=== PATIENT | female | born 2000 | race Caucasian/White ===

== ENCOUNTER 2022-06-25 00:10 | Inpatient (IN) | payer OTHER, SELFPAY ==
[2022-06-25 00:37] VITALS: BMI 30.7
[2022-06-25 02:45] VITALS: BP 105/66; PULSE 104; RESP 18; TEMP 36.6; O2SAT 96
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
[2022-06-25] MEDS: Magnesium Hydrox/Alum Hydrox 30 ML ORAL.SUSP PO (06:15)
[2022-06-25 09:30] VITALS: BP 115/56; PULSE 58; RESP 16; TEMP 36.6; O2SAT 98
--- NOTE | 2022-06-25 11:24 | P.CONHOSP_ITS ---
History of Present Illness Data of Consult Service Date: 06/25/22 Primary Care Provider: Unknown Physician HPI Reason for consult: Routine medical problem This is a 22 yo F who is admitted to the inpatient psychiatric unit. Medical consult requested for routine medical H&P. The patient was initially on the telephone (shared phone in the hallway) when I first met her. Upon introducing myself, the patient immediately became emotional and grasped her stomach. She reoprts that she has had abdominal pain -- mid abdomen, for the last 3 years. She is unable to qualify the nature of this pain. She states initially that she has not seen a pattern to the pain. She subsequently reports it worsens with oral intake. She denies any hematemesis or melena. She denies taking ibupforen or excessive alcohol. She reports multiple CT scans at [facility] and endorses that she has endoscopic evaluations previously She feels frustrated because she has not been given a diagnosis. PMH Abdominal pain PSH Endoscopies Vapes nicotine; no marijuana for 3 weeks; denies etoh denies medical issues, reports mental health issues Review of Systems Review of Systems: negative except HPI PMFSH Social History Household Members: Significant Other Housing: Apartment Do you presently have visiting nurse or other home services: No Patient Tobacco Use Status: Never used Tobacco Smoked in Last 30 Days: No e-Cigarette/Vaping Use: Currently Using Frequency of e-Cigarette/Vaping Use: 50mg nicotine/1 pod daily Patient Interested in Nicotine Replacement: Yes Patient Given Instructions on How to Stop Smoking: Yes Date Education Initiated: 06/25/22 Second Hand Smoke Exposure: No Use of substances other than those prescribed or required for medical reasons: Yes Substance Use Type: Marijuana Substance Use Frequency: Daily Last Used Substance: Weeks (ago) Currently Displaying Signs/Symptoms of Drug Intoxication Withdrawal: No Any prior treatment program specific to substance use: No Have you been hit, kicked, punched, or otherwise hurt by someone within the past year? If so, by whom?: No Do you feel safe in your current relationship?: Yes Is there a partner from a previous relationship who is making you feel unsafe now?: No Are you made to feel afraid or neglected: No Advance Directives: No Do you have thoughts of harming others: None Do you have a plan to hurt others: No Plan Recently lost weight without trying: Unsure How much weight loss: Unsure Eating poorly because of decreased appetite: Yes Nutrition screen score: 5 Nutrition Risks: Acute nausea or vomiting x1 week and Binging/Purging Patient : No : No Poor oral hygiene: No service: No Sexual orientation: Straight/Heterosexual Meds Allergies Allergy/AdvReac Type Severity Reaction Status Date / Time morphine AdvReac Agitated Verified 06/25/22 00:37 Active Medications: Current Medications Acetaminophen (Acetaminophen 325 Mg Tablet) 650 mg PO Q6H PRN PRN Reason: Headache/Pain Mild Scale (1-3) Al Hydroxide/Mg Hydroxide (Magnesium Hydrox/Alum Hydrox 30 Ml Oral.Susp) 30 ml PO Q6H PRN PRN Reason: Heartburn/Nausea Last Admin: 06/25/22 06:15 Dose: 30 ml Hydroxyzine HCl (Hydroxyzine Hcl 25 Mg Tablet) 25 mg PO Q6H PRN PRN Reason: Anxiety Magnesium Hydroxide (Milk Of Magnesia 30 Ml Oral.Susp) 30 ml PO DAILY PRN PRN Reason: Constipation Trazodone HCl (Trazodone Hcl 50 Mg Tablet) 50 mg PO BEDTIME PRN PRN Reason: Insomnia Home Medications Medication Instructions Recorded Confirmed Last Taken Type clonidine HCl 0.1 mg tablet 0.1 mg PO TID 06/25/22 06/25/22 Unknown History famotidine 10 mg tablet 10 mg BID 06/25/22 06/25/22 Unknown History lithium carbonate 150 mg capsule 150 mg PO BID 06/25/22 06/25/22 Unknown History propranolol 10 mg tablet 10 mg PO DAILY 06/25/22 06/25/22 Unknown History Physical Exam Vital Signs and Narrative: Vital Signs: Last Vital Signs Temp 97.9 F 06/25/22 02:45 Pulse 104 06/25/22 02:45 Resp 18 06/25/22 02:45 BP 105/66 06/25/22 02:45 Pulse Ox 96 06/25/22 02:45 O2 Del Method 06/25/22 02:45 BMI result Body Mass Index 30.7 Const: Other: General - emotional, crying; clasping stomach Cardiovascular - regular rate and rhythm, S1-S2 Lungs - normal respiratory effort, clear to auscultation bilaterally, no wheezing Abdomen - soft and non-distened; normal bowel sounds; benign exam Extremities - no edema bilaterally Neuro - awake and alert, no focal deficits Assessment and Plan (1) Abdominal pain: Status: Acute Plan 22 yo F admitted to inpatient psych unit. Medical consult requested for routine medical H&P. 1. Adominal pain acute on chronic per patients reported history. Reprots significant work up with [facility] without an acute diagnosis. Her exam is currently benign and per documentation from [facility] -- she had a normal CT scan (no formal CT report seen on her physical chart). Can continue pepcid that she is chronically on and add prilosec 20mg daily. If her pain is prohibitive to her mental health treatment -- would recommend GI evaluation, although it appears that she has been worked up in the past. Try to avoid narcotic analgesics if at all possible. The above has been d/w her primary psychiatrist Dr. Moser. Will sign off, please re-consult if any issues / questions.
[2022-06-25] MEDS: LORazepam 1 MG TABLET 2 MG PO (12:03)
[2022-06-25] MEDS: Famotidine 20 MG TABLET PO (16:00)
[2022-06-25] MEDS: Ondansetron ODT 4 MG TAB.RAPDIS TRANSLINGU (16:24)
[2022-06-25] MEDS: Omeprazole 20 MG CAPSULE.DR PO (17:25)
[2022-06-25] MEDS: LORazepam 1 MG TABLET PO (17:28)
[2022-06-25 18:00] VITALS: PULSE 83; RESP 16; TEMP 36.6; O2SAT 97
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
[2022-06-25] MEDS: Famotidine 20 MG TABLET 10 MG PO (20:41)
[2022-06-25] MEDS: clonazePAM 1 MG TABLET PO (20:42)
[2022-06-26] MEDS: QUEtiapine Fumarate 50 MG TABLET PO ×3 (00:11→23:14)
[2022-06-26 06:00] VITALS: BP 114/56; PULSE 100; RESP 16; TEMP 36.6; O2SAT 97
[2022-06-26] MEDS: Omeprazole 20 MG CAPSULE.DR PO (09:13)
[2022-06-26] MEDS: clonazePAM 1 MG TABLET PO ×2 (09:15→23:14)
[2022-06-26] MEDS: Propranolol HCL 10 MG TABLET PO (09:15)
[2022-06-26] MEDS: Famotidine 20 MG TABLET 10 MG PO ×2 (09:16→21:26)
[2022-06-26 09:17] LABS: Alanine Aminotransferase 14 U/L (0-31); Albumin Level 4.8 g/dL (3.5-5.0); Alkaline Phosphatase 46 U/L (39-117); Anion Gap 18 (12-20); Aspartate Amino Transferase 16 U/L (5-31); Bilirubin Total 0.7 mg/dL (0.0-1.0); Blood Urea Nitrogen 14 mg/dL (9-16); Calcium 9.7 mg/dL (8.4-10.2); Carbon Dioxide 26 mmol/L (22-29); Chloride 99 mmol/L (96-108); Cholesterol 135 mg/dL; Creatinine Clr Calc Pharmacy 104.4; Estimated Glomerular Filt Rate > 60; Glucose Fasting 97 mg/dL (60-99); HDL Cholesterol 40 mg/dL; LDL Cholesterol Calculated 77 mg/dl; Potassium 3.2 mmol/L (3.3-5.1); Sodium 140 mmol/L (135-145); Triglycerides 90 mg/dL
--- NOTE | 2022-06-26 09:17 | P.PNPSI_ITS ---
Subjective Subjective Date of Service: 06/26/22 Reason For Visit: Major Depressive Disorder Subjective Notes: Conditional Voluntary Healthcare Proxy: No Guardianship: No Medical Problems Affecting Mental Status: No Interim History: Patient was seen and discussed in rounds today. Records and plans were reviewed. She continues to be somewhat anxious with no SI. She talked to me about wanting to be able to use her pencil erasers for drawing which she is able to do so during art group but may have access to crayons at other times. She is also requesting p.r.n. Seroquel which has not been put in for her and I put in 25 mg b.i.d. p.r.n.. Eating and sleeping adequately. No other changes were implemented today Review of Systems Review of Systems Yes all other systems are reviewed and are negative Mental Status Exam Mental Status Exam Narrative: In today's visit she is alert, oriented and pleasant. Normal speech. Good eye contact. Affect is appropriate and varied. She denies any SI. No signs of psychosis. Cognitively intact. Judgment is intact Diagnostics Vital Signs (24Hr): Vital Signs - 24 hr 06/25/22 09:30 06/25/22 18:00 06/26/22 06:00 Temperature 97.9 F 97.9 F 97.9 F Pulse Rate 58 83 100 Respiratory Rate 16 16 16 Blood Pressure 115/56 114/56 L Pulse Oximetry 98 97 97 Oxygen Delivery Method Room Air Room Air Room Air BMI result Body Mass Index 30.7 Labs Results: 06/26/22 08:19 Labs: Laboratory Results - last 48 hr 06/26/22 08:19 Sodium 140 Potassium 3.2 L Chloride 99 Carbon Dioxide 26 Anion Gap 18 BUN 14 Creatinine 0.72 Estim Creat Clear Calc 104.4 Estimated GFR > 60 Fasting Glucose 97 Calcium 9.7 Total Bilirubin 0.7 AST 16 ALT 14 Alkaline Phosphatase 46 Total Protein 7.0 Albumin 4.8 Triglycerides 90 Cholesterol 135 LDL Cholesterol, Calc 77 HDL Cholesterol 40 Medications Medications Current Medications Acetaminophen (Acetaminophen 325 Mg Tablet) 650 mg PO Q6H PRN PRN Reason: Headache/Pain Mild Scale (1-3) Al Hydroxide/Mg Hydroxide (Magnesium Hydrox/Alum Hydrox 30 Ml Oral.Susp) 30 ml PO Q6H PRN PRN Reason: Heartburn/Nausea Last Admin: 06/25/22 06:15 Dose: 30 ml Clonazepam (Clonazepam 1 Mg Tablet) 1 mg PO BID [facility] Last Admin: 06/26/22 09:15 Dose: 1 mg Famotidine (Famotidine 20 Mg Tablet) 10 mg PO BID [facility] Last Admin: 06/26/22 09:16 Dose: 10 mg Hydroxyzine HCl (Hydroxyzine Hcl 25 Mg Tablet) 25 mg PO Q6H PRN PRN Reason: Anxiety Magnesium Hydroxide (Milk Of Magnesia 30 Ml Oral.Susp) 30 ml PO DAILY PRN PRN Reason: Constipation Omeprazole (Omeprazole 20 Mg Capsule.Dr) 20 mg PO DAILY@0630 [facility] Last Admin: 06/26/22 09:13 Dose: 20 mg Ondansetron HCl (Ondansetron Odt 4 Mg Tab.Rapdis) 4 mg TRANSLINGU Q8H PRN PRN Reason: Nausea and Vomiting Last Admin: 06/25/22 16:24 Dose: 4 mg Propranolol HCl (Propranolol Hcl 10 Mg Tablet) 10 mg PO DAILY [facility]; Protocol Last Admin: 06/26/22 09:15 Dose: 10 mg Quetiapine Fumarate (Quetiapine Fumarate 50 Mg Tablet) 50 mg PO BEDTIME [facility] Last Admin: 06/26/22 04:05 Dose: 50 mg Trazodone HCl (Trazodone Hcl 50 Mg Tablet) 50 mg PO BEDTIME PRN PRN Reason: Insomnia Allergies Allergies Allergy/AdvReac Type Severity Reaction Status Date / Time morphine AdvReac Agitated Verified 06/25/22 00:37 Assessment & Plan Assessment & Plan (1) PTSD (post-traumatic stress disorder): Status: Acute Code(s): F43.10 - Post-traumatic stress disorder, unspecified (2) Borderline personality disorder: Status: Acute Code(s): F60.3 - Borderline personality disorder (3) Eating disorder, unspecified: Status: Acute Code(s): F50.9 - Eating disorder, unspecified (4) Cyclical vomiting, psychogenic: Status: Acute Code(s): F50.89 - Other specified eating disorder Plan DC seroquel, clonidine, and lithium. start klonopin 1 mg PO BID to see if anxiety can be brought under control and vomiting stopped. start omeprazole per medicine. continue famotidine, propranolol. 06/26: Continue current regimen and plans. At Seroquel 25 mg b.i.d. p.r.n. for anxiety. She has been on this before and has found it helpful I spent minutes with the patient and/or on the patient floor today, greater than?50% of which was spent counseling/coordinating care. Patient educated on: medication risk/benefits Reason for contiued inpatient stay Substantial Risk for: med/psych decompensation
[2022-06-26] MEDS: QUEtiapine Fumarate 25 MG TABLET PO (10:02)
[2022-06-26] MEDS: hydrOXYzine HCL 25 MG TABLET PO ×2 (12:56→23:14)
[2022-06-26] MEDS: Loperamide HCl 2 MG CAPSULE 4 MG PO (13:28)
--- NOTE | 2022-06-26 15:23 | PC.NURSE ---
At 1511, pt was visible in her bathroom crying on the floor. When asked what was wrong, pt said I can't see anything, my eyes are blurry. RN assisted patient back to her bed and assessed vitals. BP 130/79, HR 86, Temp 97.6, O2 99%. When asked if she's experienced this before she said yeah when I was in the emergency room but then it went away, now it came back. They said I needed glasses but they never gave me any. MD aware, no additional interventions at this time.
--- NOTE | 2022-06-26 16:15 | PC.NURSE ---
Pt vomited approximately 200mL yellow bile at least two times throughout the shift, aware
[2022-06-26 20:25] VITALS: BP 128/77; PULSE 61; RESP 16; TEMP 36.6; O2SAT 98
--- NOTE | 2022-06-27 01:04 | PC.NURSE ---
Pt A&O, initially c/o abdominal pain, sts showers and carbonated soda help. Impatient with assessments, denied SI/HI/AH/VH, declined further assessment. Accepted Pepcid during normal med pass but wanted to wait for other medication and said she would ask for them when she wanted them. After taking Pepcid, drinking gingerale, and taking a shower, pt stated ?I feel better,? appeared brighter, used humor. Then @2310 she stated the GI pain returned when she drank some water; she sat on the floor in front of the nurse station then returned to her room where she took remainder of scheduled meds @2315. Pt?s mood initially appeared depressed and anxious, improved mood after shower, then depressed again though cooperative. Gave heat pack for abdominal pain. Slept afterward.
[2022-06-27] MEDS: QUEtiapine Fumarate 25 MG TABLET PO (05:49)
[2022-06-27] MEDS: Omeprazole 20 MG CAPSULE.DR PO (05:49)
[2022-06-27 06:00] VITALS: BP 151/104; PULSE 84; RESP 18; TEMP 36.3; O2SAT 99
[2022-06-27] MEDS: hydrOXYzine HCL 25 MG TABLET PO ×3 (06:26→20:45)
[2022-06-27] MEDS: Famotidine 20 MG TABLET 10 MG PO ×2 (09:23→20:46)
[2022-06-27] MEDS: clonazePAM 1 MG TABLET PO ×2 (09:23→20:45)
[2022-06-27] MEDS: Propranolol HCL 10 MG TABLET PO (09:26)
--- NOTE | 2022-06-27 09:55 | P.PNPSI_ITS ---
Subjective Subjective Date of Service: 06/27/22 Reason For Visit: Major Depressive Disorder Subjective Notes: Conditional Voluntary Healthcare Proxy: No Guardianship: No Medical Problems Affecting Mental Status: No Interim History: Patient was seen and discussed in rounds today. Records and plans were reviewed. She states that she is still having a lot of anxiety and these Seroquel 25 mg p.r.n. has not been effective at all. I will increase it to 50 mg t.i.d. p.r.n.. She also has been having episodes of abdominal pain and discomfort. Eating and sleeping adequately. No other complaints. She has had some crying spells. Her affect has been up and down. No other changes were implemented. Review of Systems Review of Systems Anxiety, abdominal discomfort and pain Yes all other systems are reviewed and are negative Diagnostics Vital Signs (24Hr): Vital Signs - 24 hr 06/26/22 20:25 06/27/22 06:00 Temperature 97.9 F 97.4 F Pulse Rate 61 84 Respiratory Rate 16 18 Blood Pressure 128/77 151/104 H Pulse Oximetry 98 99 Oxygen Delivery Method Room Air Room Air BMI result Body Mass Index 30.7 Labs Results: 06/26/22 08:19 Labs: Laboratory Results - last 48 hr 06/26/22 08:19 Sodium 140 Potassium 3.2 L Chloride 99 Carbon Dioxide 26 Anion Gap 18 BUN 14 Creatinine 0.72 Estim Creat Clear Calc 104.4 Estimated GFR > 60 Fasting Glucose 97 Calcium 9.7 Total Bilirubin 0.7 AST 16 ALT 14 Alkaline Phosphatase 46 Total Protein 7.0 Albumin 4.8 Triglycerides 90 Cholesterol 135 LDL Cholesterol, Calc 77 HDL Cholesterol 40 Medications Medications Current Medications Acetaminophen (Acetaminophen 325 Mg Tablet) 650 mg PO Q6H PRN PRN Reason: Headache/Pain Mild Scale (1-3) Al Hydroxide/Mg Hydroxide (Magnesium Hydrox/Alum Hydrox 30 Ml Oral.Susp) 30 ml PO Q6H PRN PRN Reason: Heartburn/Nausea Last Admin: 06/25/22 06:15 Dose: 30 ml Clonazepam (Clonazepam 1 Mg Tablet) 1 mg PO BID [facility] Last Admin: 06/27/22 09:23 Dose: 1 mg Famotidine (Famotidine 20 Mg Tablet) 10 mg PO BID [facility] Last Admin: 06/27/22 09:23 Dose: 10 mg Hydroxyzine HCl (Hydroxyzine Hcl 25 Mg Tablet) 25 mg PO Q6H PRN PRN Reason: Anxiety Last Admin: 06/27/22 06:26 Dose: 25 mg Magnesium Hydroxide (Milk Of Magnesia 30 Ml Oral.Susp) 30 ml PO DAILY PRN PRN Reason: Constipation Omeprazole (Omeprazole 20 Mg Capsule.Dr) 20 mg PO DAILY@0630 [facility] Last Admin: 06/27/22 05:49 Dose: 20 mg Ondansetron HCl (Ondansetron Odt 4 Mg Tab.Rapdis) 4 mg TRANSLINGU Q8H PRN PRN Reason: Nausea and Vomiting Last Admin: 06/25/22 16:24 Dose: 4 mg Propranolol HCl (Propranolol Hcl 10 Mg Tablet) 10 mg PO DAILY [facility]; Protocol Last Admin: 06/27/22 09:26 Dose: 10 mg Quetiapine Fumarate (Quetiapine Fumarate 50 Mg Tablet) 50 mg PO BEDTIME [facility] Last Admin: 06/26/22 23:14 Dose: 50 mg Quetiapine Fumarate (Quetiapine Fumarate 25 Mg Tablet) 25 mg PO BID PRN PRN Reason: Anxiety Last Admin: 06/27/22 05:49 Dose: 25 mg Trazodone HCl (Trazodone Hcl 50 Mg Tablet) 50 mg PO BEDTIME PRN PRN Reason: Insomnia Allergies Allergies Allergy/AdvReac Type Severity Reaction Status Date / Time morphine AdvReac Agitated Verified 06/25/22 00:37 Assessment & Plan Assessment & Plan (1) PTSD (post-traumatic stress disorder): Status: Acute Code(s): F43.10 - Post-traumatic stress disorder, unspecified (2) Borderline personality disorder: Status: Acute Code(s): F60.3 - Borderline personality disorder (3) Eating disorder, unspecified: Status: Acute Code(s): F50.9 - Eating disorder, unspecified (4) Cyclical vomiting, psychogenic: Status: Acute Code(s): F50.89 - Other specified eating disorder Plan DC seroquel, clonidine, and lithium. start klonopin 1 mg PO BID to see if anxiety can be brought under control and vomiting stopped. start omeprazole per medicine. continue famotidine, propranolol. 06/26: Continue current regimen and plans. At Seroquel 25 mg b.i.d. p.r.n. for anxiety. She has been on this before and has found it helpful Continue current regimen and plans. Increase Seroquel to 50 mg t.i.d. p.r.n. I spent minutes with the patient and/or on the patient floor today, greater than?50% of which was spent counseling/coordinating care. Patient educated on: medication risk/benefits Reason for contiued inpatient stay Substantial Risk for: med/psych decompensation
[2022-06-27] MEDS: QUEtiapine Fumarate 50 MG TABLET PO ×3 (10:45→20:45)
[2022-06-27] MEDS: Ondansetron ODT 4 MG TAB.RAPDIS TRANSLINGU (10:45)
[2022-06-27 20:38] VITALS: BP 149/94; PULSE 90; RESP 18; TEMP 36.2; O2SAT 100
--- NOTE | 2022-06-27 22:58 | PC.NURSE ---
Discussed with pt health risks associated with frequent vomiting including dehydration, damage to the esophagus, risk of esophageal cancer, and dental erosion from acidic stomach contents. Pt responded, I'm well aware. I just don't know what to do about it, then stated, Now that you mention it, I'm going to brush my teeth. Pt then asked for her art supplies and was allowed supervised use in the day room.
[2022-06-28] MEDS: QUEtiapine Fumarate 50 MG TABLET PO ×2 (03:59→12:40)
[2022-06-28 06:00] VITALS: BP 112/57; PULSE 88; RESP 16; TEMP 36.2; O2SAT 99
[2022-06-28] MEDS: Omeprazole 20 MG CAPSULE.DR PO (08:01)
[2022-06-28] MEDS: Propranolol HCL 10 MG TABLET PO (08:01)
[2022-06-28] MEDS: clonazePAM 1 MG TABLET PO ×3 (08:01→21:16)
[2022-06-28] MEDS: Famotidine 20 MG TABLET 10 MG PO ×2 (08:02→21:15)
[2022-06-28] MEDS: hydrOXYzine HCL 25 MG TABLET PO ×2 (12:40→23:57)
--- NOTE | 2022-06-28 12:53 | HO.PSYCHPN ---
Subjective Subjective Date of Service: 06/28/22 Reason For Visit: Major Depressive Disorder Interim History: pt expresses upset at having discharge planned for tomorrow. states her anxiety is worse than it's ever been and she is genuinely afraid of going home. she says she is having constant anxiety attacks [place] and likely jump to her if she returns home in this state. she states, when i'm sick, i'm suicidal. she feels quite ill presently. agreeable to increase klonopin to 1 TID, increase seroquel at HS to 150 mg. per staff, nausea. c/o stomach pain and anxiety. denies SI/HI/AVH to staff. eves watching TV. vomited into bucket in group room; agreed to go to her room if she needed to vomit moving forward. attending to ADLs. ate dinner. asking for Tx plan for when she needs to vomit. Mental Status Exam Mental Status Exam Narrative: somewhat flustered and agitated, cooperative. no PMA/PMR. speech nml loudness; incr amount, rate; decr latency. nml tone. thoughts linear and logical without delusions or paranoia. affect constricted, hyper-intense, min-labile. mood anxious. endorsed SI when i'm sick, no HI/AVH reported. Diagnostics Vital Signs (24Hr): Vital Signs - 24 hr 06/27/22 20:38 06/28/22 06:00 Temperature 97.2 F 97.1 F Pulse Rate 90 88 Respiratory Rate 18 16 Blood Pressure 149/94 H 112/57 L Pulse Oximetry 100 99 Oxygen Delivery Method Room Air Room Air BMI result Body Mass Index 30.7 Labs Results: 06/26/22 08:19 Medications Medications Current Medications Acetaminophen (Acetaminophen 325 Mg Tablet) 650 mg PO Q6H PRN PRN Reason: Headache/Pain Mild Scale (1-3) Al Hydroxide/Mg Hydroxide (Magnesium Hydrox/Alum Hydrox 30 Ml Oral.Susp) 30 ml PO Q6H PRN PRN Reason: Heartburn/Nausea Last Admin: 06/25/22 06:15 Dose: 30 ml Clonazepam (Clonazepam 1 Mg Tablet) 1 mg PO TID KATERINA Famotidine (Famotidine 20 Mg Tablet) 10 mg PO BID [facility]ATER[facility] Last Admin: 06/28/22 08:02 Dose: 10 mg Hydroxyzine HCl (Hydroxyzine Hcl 25 Mg Tablet) 25 mg PO Q6H PRN PRN Reason: Anxiety Last Admin: 06/28/22 12:40 Dose: 25 mg Magnesium Hydroxide (Milk Of Magnesia 30 Ml Oral.Susp) 30 ml PO DAILY PRN PRN Reason: Constipation Omeprazole (Omeprazole 20 Mg Capsule.Dr) 20 mg PO DAILY@0630 [facility] Last Admin: 06/28/22 08:01 Dose: 20 mg Ondansetron HCl (Ondansetron Odt 4 Mg Tab.Rapdis) 4 mg TRANSLINGU Q8H PRN PRN Reason: Nausea and Vomiting Last Admin: 06/27/22 10:45 Dose: 4 mg Propranolol HCl (Propranolol Hcl 10 Mg Tablet) 10 mg PO DAILY [facility]; Protocol Last Admin: 06/28/22 08:01 Dose: 10 mg Quetiapine Fumarate (Quetiapine Fumarate 50 Mg Tablet) 50 mg PO TID PRN PRN Reason: Anxiety Last Admin: 06/28/22 12:40 Dose: 50 mg Quetiapine Fumarate (Quetiapine Fumarate 50 Mg Tablet) 150 mg PO BEDTIME [facility] Quetiapine Fumarate (Quetiapine Fumarate 50 Mg Tablet) 50 mg PO BEDTIME PRN PRN Reason: insomnia Allergies Allergies Allergy/AdvReac Type Severity Reaction Status Date / Time morphine AdvReac Agitated Verified 06/25/22 00:37 Assessment & Plan Assessment & Plan (1) PTSD (post-traumatic stress disorder): Status: Acute Code(s): F43.10 - Post-traumatic stress disorder, unspecified (2) Borderline personality disorder: Status: Acute Code(s): F60.3 - Borderline personality disorder (3) Eating disorder, unspecified: Status: Acute Code(s): F50.9 - Eating disorder, unspecified (4) Cyclical vomiting, psychogenic: Status: Acute Code(s): F50.89 - Other specified eating disorder Plan DC seroquel, clonidine, and lithium. start klonopin 1 mg PO BID to see if anxiety can be brought under control and vomiting stopped. start omeprazole per medicine. continue famotidine, propranolol. 06/26: Continue current regimen and plans. At Seroquel 25 mg b.i.d. p.r.n. for anxiety. She has been on this before and has found it helpful 06/27: Continue current regimen and plans. Increase Seroquel to 50 mg t.i.d. p.r.n. 06/28: increase klonopin to 1 mg TID, increase HS seroquel to 150 mg. continue prior plan otherwise. no clear change in anxiety or GI Sx since admission. I spent ___25___ minutes with the patient and/or on the patient floor today, greater than?50% of which was spent counseling/coordinating care. Patient educated on: medication risk/benefits Reason for contiued inpatient stay Substantial Risk for: harm to self, inability to function and rapid decompensation
[2022-06-28 21:05] VITALS: BP 116/63; PULSE 93; RESP 16; TEMP 36.6; O2SAT 96
[2022-06-28] MEDS: Nicotine Polacrilex 2 MG GUM 4 MG BUCCAL ×2 (21:32→23:59)
--- NOTE | 2022-06-28 21:56 | PC.NURSE ---
Late entry note for 1600 Patient observed vomiting in her room. Vomit was appeard to be yellow/bile. Patient reported that she is feeling anxious about discharge and attributed the vomiting d/t nerves about being discharged tomorrow.
[2022-06-28] MEDS: QUEtiapine Fumarate 50 MG TABLET 150 MG PO (23:51)
[2022-06-29] MEDS: Omeprazole 20 MG CAPSULE.DR PO (09:34)
[2022-06-29] MEDS: Famotidine 20 MG TABLET 10 MG PO ×2 (09:34→20:19)
[2022-06-29 09:35] VITALS: BP 112/67; PULSE 112; RESP 16; TEMP 36.6; O2SAT 98
[2022-06-29] MEDS: Propranolol HCL 10 MG TABLET PO (09:36)
[2022-06-29] MEDS: clonazePAM 1 MG TABLET PO ×3 (09:36→20:19)
[2022-06-29] MEDS: Nicotine 21 MG PATCH.TD24 TRANSDERMA (11:39)
--- NOTE | 2022-06-29 14:44 | P.PNPSI_ITS ---
Subjective Subjective Date of Service: 06/29/22 Reason For Visit: Major Depressive Disorder Interim History: reported poor sleep. agreeable to adding back clonidine 0.1 mg at HS. states h er anxiety is a bit better with medications change yesterday. per staff, eating OK, did not vomit yesterday. c/o insomnia 2/2 cold room. c/o increased anxiety and Racing mind. appeared to sleep until 0200, then went and slept in sensory room. no vomiting yesterday. Mental Status Exam Mental Status Exam Narrative: less flustered and agitated, cooperative. no PMA/PMR. speech nml loudness, a mount, rate; decr latency. nml tone. thoughts linear and logical without delusions or paranoia. affect constricted, hyper-intense, min-labile. mood anxious. no SI/HI/AVH reported. Diagnostics Vital Signs (24Hr): Vital Signs - 24 hr 06/28/22 21:05 06/29/22 09:35 Temperature 97.8 F 97.9 F Pulse Rate 93 112 H Respiratory Rate 16 16 Blood Pressure 116/63 112/67 Pulse Oximetry 96 98 Oxygen Delivery Method Room Air Room Air BMI result Body Mass Index 30.7 Labs Results: 06/26/22 08:19 Medications Medications Current Medications Acetaminophen (Acetaminophen 325 Mg Tablet) 650 mg PO Q6H PRN PRN Reason: Headache/Pain Mild Scale (1-3) Al Hydroxide/Mg Hydroxide (Magnesium Hydrox/Alum Hydrox 30 Ml Oral.Susp) 30 ml PO Q6H PRN PRN Reason: Heartburn/Nausea Last Admin: 06/25/22 06:15 Dose: 30 ml Clonazepam (Clonazepam 1 Mg Tablet) 1 mg PO TID [facility] Last Admin: 06/29/22 14:25 Dose: 1 mg Clonidine HCl (Clonidine Hcl 0.1 Mg Tablet) 0.1 mg PO BEDTIME [facility]; Protocol Famotidine (Famotidine 20 Mg Tablet) 10 mg PO BID [facility] Last Admin: 06/29/22 09:34 Dose: 10 mg Hydroxyzine HCl (Hydroxyzine Hcl 25 Mg Tablet) 25 mg PO Q6H PRN PRN Reason: Anxiety Last Admin: 06/28/22 23:57 Dose: 25 mg Magnesium Hydroxide (Milk Of Magnesia 30 Ml Oral.Susp) 30 ml PO DAILY PRN PRN Reason: Constipation Nicotine (Nicotine 21 Mg Patch.Td24) 21 mg TRANSDERMA DAILY [facility] Last Admin: 06/29/22 11:39 Dose: 21 mg Nicotine Polacrilex (Nicotine Polacrilex 2 Mg Gum) 4 mg BUCCAL Q2H PRN PRN Reason: Cravings Last Admin: 06/28/22 23:59 Dose: 4 mg Omeprazole (Omeprazole 20 Mg Capsule.Dr) 20 mg PO DAILY@0630 [facility] Last Admin: 06/29/22 09:34 Dose: 20 mg Ondansetron HCl (Ondansetron Odt 4 Mg Tab.Rapdis) 4 mg TRANSLINGU Q8H PRN PRN Reason: Nausea and Vomiting Last Admin: 06/27/22 10:45 Dose: 4 mg Propranolol HCl (Propranolol Hcl 10 Mg Tablet) 10 mg PO DAILY [facility]; Protocol Last Admin: 06/29/22 09:36 Dose: 10 mg Quetiapine Fumarate (Quetiapine Fumarate 50 Mg Tablet) 50 mg PO TID PRN PRN Reason: Anxiety Last Admin: 06/28/22 12:40 Dose: 50 mg Quetiapine Fumarate (Quetiapine Fumarate 50 Mg Tablet) 150 mg PO BEDTIME [facility] Last Admin: 06/28/22 23:51 Dose: 150 mg Quetiapine Fumarate (Quetiapine Fumarate 50 Mg Tablet) 50 mg PO BEDTIME PRN PRN Reason: insomnia Allergies Allergies Allergy/AdvReac Type Severity Reaction Status Date / Time morphine AdvReac Agitated Verified 06/25/22 00:37 Assessment & Plan Assessment & Plan (1) PTSD (post-traumatic stress disorder): Status: Acute Code(s): F43.10 - Post-traumatic stress disorder, unspecified (2) Borderline personality disorder: Status: Acute Code(s): F60.3 - Borderline personality disorder (3) Eating disorder, unspecified: Status: Acute Code(s): F50.9 - Eating disorder, unspecified (4) Cyclical vomiting, psychogenic: Status: Acute Code(s): F50.89 - Other specified eating disorder Plan DC seroquel, clonidine, and lithium. start klonopin 1 mg PO BID to see if anxiety can be brought under control and vomiting stopped. start omeprazole per medicine. continue famotidine, propranolol. 06/26: Continue current regimen and plans. At Seroquel 25 mg b.i.d. p.r.n. for anxiety. She has been on this before and has found it helpful 06/27: Continue current regimen and plans. Increase Seroquel to 50 mg t.i.d. p.r .n. 06/28: increase klonopin to 1 mg TID, increase HS seroquel to 150 mg. continue prior plan otherwise. no clear change in anxiety or GI Sx since admission. 06/29: anxiety improved, no vomiting yesterday. added clonidine 0.1 mg at HS for nightmares/insomnia. I spent __25____ minutes with the patient and/or on the patient floor today, greater than?50% of which was spent counseling/coordinating care. Reason for contiued inpatient stay Substantial Risk for: harm to self, inability to function and rapid decompensation
[2022-06-29] MEDS: QUEtiapine Fumarate 50 MG TABLET PO (15:53)
[2022-06-29] MEDS: Nicotine 7 MG PATCH.TD24 TRANSDERMA (16:31)
[2022-06-29] MEDS: Nicotine Polacrilex 2 MG GUM 4 MG BUCCAL (17:27)
[2022-06-29 18:00] VITALS: BP 113/78; PULSE 120; TEMP 36.4
[2022-06-29] MEDS: cloNIDine HCL 0.1 MG TABLET PO (20:20)
[2022-06-30] MEDS: Nicotine Polacrilex 2 MG GUM 4 MG BUCCAL (03:31)
[2022-06-30] MEDS: Omeprazole 20 MG CAPSULE.DR PO (05:39)
[2022-06-30] MEDS: hydrOXYzine HCL 25 MG TABLET PO ×2 (05:39→18:15)
[2022-06-30 09:38] VITALS: BP 88/49; PULSE 72; RESP 18; TEMP 36.7; O2SAT 99
[2022-06-30] MEDS: Nicotine 7 MG PATCH.TD24 TRANSDERMA (09:40)
[2022-06-30] MEDS: Famotidine 20 MG TABLET 10 MG PO ×2 (09:41→21:35)
[2022-06-30] MEDS: Propranolol HCL 10 MG TABLET PO (09:42)
[2022-06-30] MEDS: clonazePAM 1 MG TABLET PO ×3 (09:42→21:03)
[2022-06-30] MEDS: QUEtiapine Fumarate 50 MG TABLET PO ×2 (14:08→18:15)
--- NOTE | 2022-06-30 15:03 | P.PNPSI_ITS ---
Subjective Subjective Date of Service: 06/30/22 Reason For Visit: Major Depressive Disorder Interim History: reports improved anxiety, feels more confident about going home. states a surro gate mother plans to come in to meet with team. no vomiting for 48 hours. stayed up last night to reset her circadian rhythm as she had been sleeping a lot during the day recently. planning for discharge tomorrow. per staff, up all NOC last night reportedly due to fear of going to sleep, having nightmares. shouting at staff due to her being hungry and there being no sandwiches available. denies SI/HI/AVH. Mental Status Exam Mental Status Exam Narrative: calm, cooperative. no PMA/PMR. speech nml loudness, amount, rate, latency, tone. thoughts linear and logical without delusions or paranoia. affect flexible, normo-intense, non-labile. mood less anxious. no SI/HI/AVH reported. Diagnostics Vital Signs (24Hr): Vital Signs - 24 hr 06/29/22 18:00 06/30/22 09:38 Temperature 97.6 F 98.1 F Pulse Rate 120 H 72 Respiratory Rate 18 Blood Pressure 113/78 88/49 L Pulse Oximetry 99 Oxygen Delivery Method Room Air BMI result Body Mass Index 30.7 Labs Results: 06/26/22 08:19 Medications Medications Current Medications Acetaminophen (Acetaminophen 325 Mg Tablet) 650 mg PO Q6H PRN PRN Reason: Headache/Pain Mild Scale (1-3) Al Hydroxide/Mg Hydroxide (Magnesium Hydrox/Alum Hydrox 30 Ml Oral.Susp) 30 ml PO Q6H PRN PRN Reason: Heartburn/Nausea Last Admin: 06/25/22 06:15 Dose: 30 ml Clonazepam (Clonazepam 1 Mg Tablet) 1 mg PO TID [facility]ATER[facility] Last Admin: 06/30/22 14:08 Dose: 1 mg Clonidine HCl (Clonidine Hcl 0.1 Mg Tablet) 0.1 mg PO BEDTIME [facility]; Protocol Last Admin: 06/29/22 20:20 Dose: 0.1 mg Famotidine (Famotidine 20 Mg Tablet) 10 mg PO BID [facility] Last Admin: 06/30/22 09:41 Dose: 10 mg Hydroxyzine HCl (Hydroxyzine Hcl 25 Mg Tablet) 25 mg PO Q6H PRN PRN Reason: Anxiety Last Admin: 06/30/22 05:39 Dose: 25 mg Magnesium Hydroxide (Milk Of Magnesia 30 Ml Oral.Susp) 30 ml PO DAILY PRN PRN Reason: Constipation Nicotine (Nicotine 7 Mg Patch.Td24) 7 mg TRANSDERMA DAILY [facility] Last Admin: 06/30/22 09:40 Dose: 7 mg Nicotine Polacrilex (Nicotine Polacrilex 2 Mg Gum) 4 mg BUCCAL Q2H PRN PRN Reason: Cravings Last Admin: 06/30/22 03:31 Dose: 4 mg Omeprazole (Omeprazole 20 Mg Capsule.Dr) 20 mg PO DAILY@0630 [facility] Last Admin: 06/30/22 05:39 Dose: 20 mg Ondansetron HCl (Ondansetron Odt 4 Mg Tab.Rapdis) 4 mg TRANSLINGU Q8H PRN PRN Reason: Nausea and Vomiting Last Admin: 06/27/22 10:45 Dose: 4 mg Propranolol HCl (Propranolol Hcl 10 Mg Tablet) 10 mg PO DAILY [facility]; Protocol Last Admin: 06/30/22 09:42 Dose: 10 mg Quetiapine Fumarate (Quetiapine Fumarate 50 Mg Tablet) 50 mg PO TID PRN PRN Reason: Anxiety Last Admin: 06/30/22 14:08 Dose: 50 mg Quetiapine Fumarate (Quetiapine Fumarate 50 Mg Tablet) 150 mg PO BEDTIME [facility] Last Admin: 06/29/22 20:22 Dose: Not Given Quetiapine Fumarate (Quetiapine Fumarate 50 Mg Tablet) 50 mg PO BEDTIME PRN PRN Reason: insomnia Allergies Allergies Allergy/AdvReac Type Severity Reaction Status Date / Time morphine AdvReac Agitated Verified 06/25/22 00:37 Assessment & Plan Assessment & Plan (1) PTSD (post-traumatic stress disorder): Status: Acute Code(s): F43.10 - Post-traumatic stress disorder, unspecified (2) Borderline personality disorder: Status: Acute Code(s): F60.3 - Borderline personality disorder (3) Eating disorder, unspecified: Status: Acute Code(s): F50.9 - Eating disorder, unspecified (4) Cyclical vomiting, psychogenic: Status: Acute Code(s): F50.89 - Other specified eating disorder Plan DC seroquel, clonidine, and lithium. start klonopin 1 mg PO BID to see if anxiety can be brought under control and vomiting stopped. start omeprazole per medicine. continue famotidine, propranolol. 06/26: Continue current regimen and plans. At Seroquel 25 mg b.i.d. p.r.n. for anxiety. She has been on this before and has found it helpful 06/27: Continue current regimen and plans. Increase Seroquel to 50 mg t.i.d. p.r.n. 06/28: increase klonopin to 1 mg TID, increase HS seroquel to 150 mg. continue prior plan otherwise. no clear change in anxiety or GI Sx since admission. 06/29: anxiety improved, no vomiting yesterday. added clonidine 0.1 mg at HS for nightmares/insomnia. 06/30: less anxious, no vomiting x 48h. planning for discharge tomorrow. I spent ___20___ minutes with the patient and/or on the patient floor today, greater than?50% of which was spent counseling/coordinating care. Reason for contiued inpatient stay Substantial Risk for: inability to function and rapid decompensation
[2022-06-30] MEDS: cloNIDine HCL 0.1 MG TABLET PO (21:03)
[2022-06-30 21:04] VITALS: BP 111/66; PULSE 94; RESP 16; TEMP 36.4; O2SAT 99
[2022-06-30] MEDS: QUEtiapine Fumarate 50 MG TABLET 150 MG PO (21:35)
[2022-07-01 08:00] VITALS: BP 110/60; PULSE 75; RESP 16; TEMP 36.3; O2SAT 100
[2022-07-01] MEDS: clonazePAM 1 MG TABLET PO (08:16)
[2022-07-01] MEDS: Propranolol HCL 10 MG TABLET PO (08:16)
[2022-07-01] MEDS: Omeprazole 20 MG CAPSULE.DR PO (08:17)
[2022-07-01] MEDS: Famotidine 20 MG TABLET 10 MG PO (08:17)
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
--- NOTE | 2022-07-01 11:31 | PC.NURSE ---
Pt initially afraid of going home not on the meds she had been taking prior to admission. Pt then verbalized that she has been feeling better past few days. she then verbalized that it makes sense to take meds that are prescribed at discharge. Pt denies ideation or intent to hurt, self or others. she verbalized understanding of discharge plan , appointments and medications. Pt denies physical complaints and no longer is vomiting. '
== END 2022-07-01 11:50 | disposition home or self-care (01) | DRG 752 ==
PROVIDERS: Psychiatry & Neurology Psychiatry; Admitting Provider Psychiatry & Neurology Psychiatry; Visit Provider Psychiatry & Neurology Psychiatry
DX: F60.3 Borderline personality disorder (principal); R45.851 Suicidal ideations; F50.89 Other specified eating disorder; F43.10 Post-traumatic stress disorder, unspecified; Z91.19 Patient's noncompliance with other medical treatment and regimen; Z68.30 Body mass index [BMI] 30.0-30.9, adult; Z88.5 Allergy status to narcotic agent; Z79.899 Other long term (current) drug therapy
CPT/HCPCS: 36415; 80053; 80061; 90686